=== PATIENT | male | born 1945 | race Caucasian/White ===

== ENCOUNTER → 2016-07-07 | Outpatient (CLI) | payer OTHER ==
[2015-01-25 15:30] VITALS: BP 123/62
--- NOTE | 2016-07-08 09:47 | MRI ---
HISTORY: Chronic low back pain, degenerative disc disease Study: MRI lumbar spine without contrast Comparison: None Technique: Multiplanar multi-sequence MRI of the lumbar spine was obtained. Sagittal T1, sagittal T 2, and stir weighted images, axial T1, and axial T2 images were obtained. Findings: The lumbar spine demonstrates normal alignment with the expected signal characteristics of the bone marrow. The conus of the cord terminates normally. T12 -- L1: No evidence for compressive disc disease. The neural foramina are patent. The joints are normal. L1 -- L2: No evidence for compressive disc disease. The neural foramina are patent. The joints are n ormal. L2 -- L3: No evidence for compressive disc disease. The neural foramina are patent. Mild facet arthr opathy is present. L3 -- L4: Mild broad-based disk bulging is identified. However there is also a focal rightward disc protrusion which contributes along with facet arthropathy to lateral recess and foraminal narrowing. The left neural foramen is patent. Left-sided facet arthropathy is also present. L4 -- L5: There is broad-based disc protrusion which extends somewhat more to the right than the lef t where it contributes to lateral recess and foraminal narrowing. However facet arthropathy, ligamen tous hypertrophy and a 1.65 by 0.87 centimeter synovial cyst originating from the left facet joint c ontribute to a relatively severe spinal stenosis. There is mild foraminal narrowing on the left. L5 -- S1: Broad-based disc bulging contributes along with bilateral facet arthropathy to marked late ral recess narrowing and foraminal narrowing on the left and mild narrowing on the right. IMPRESSION: As above Reported By:
== END ==
LOC: RAD 10:51
PROVIDERS: ATTEND Orthopaedic Surgery
DX: M51.36 Other intervertebral disc degeneration, lumbar region (principal)
CPT/HCPCS: 72148

== ENCOUNTER → 2016-07-23 | Day surgery (SDC) | payer OTHER ==
[~2016-07-23] MED LIST: KENALOG INJ 40 MG ONE; MARCAINE/EPINEPHRINE ONE; XYLOCAINE 2 % (PLAIN) ONE
--- NOTE | 2016-07-23 13:07 | DR.UPDATE ---
H&P Update History and Physical Update: History and Physical reviewed and patient examined. Changes noted: NO Yes with the following: Pt presents today with exam and history unchanged from office H&P. will plan for left Lumbar 4 lumbar 5 facet injection
[2016-07-23 13:39] VITALS: BP 169/95
== END | disposition home or self-care (01) | DRG 558 ==
LOC: SURG1 11:52
PROVIDERS: ATTEND Specialist
PROC: BR16ZZZ Fluoroscopy of Lumbar Facet Joint(s) (ICD-10-PCS; principal; 2016-07-23 11:45)
PROC: 3E0U3BZ Introduction of Anesthetic Agent into Joints, Percutaneous Approach (ICD-10-PCS; principal; 2016-07-23 11:45)
PROC: 3E0U33Z Introduction of Anti-inflammatory into Joints, Percutaneous Approach (ICD-10-PCS; principal; 2016-07-23 11:45)
DX: M71.38 Other bursal cyst, other site (principal); M12.88 Other specific arthropathies, not elsewhere classified, other specified site
CPT/HCPCS: 64493; S0020; J2001; J3301

== ENCOUNTER 2016-08-04 11:05 | Day surgery (SDC) | payer OTHER ==
--- NOTE | 2016-08-04 11:34 | DR.UPDATE ---
H&P Update History and Physical Update: History and Physical reviewed and patient examined. Changes noted: Yes with the following: Pt reports >50% reduction in pain with initial injection here for repeat. Otherwise unremarkable
[2016-08-04] MEDS: XYLOCAINE 2 % (PLAIN) ONE ×2 (11:36→12:17)
[2016-08-04] MEDS ORDERED: MARCAINE/EPINEPHRINE ONE (11:37)
[2016-08-04] MEDS ORDERED: KENALOG INJ 40 MG ONE (11:38)
[2016-08-04 13:38] VITALS: BP 181/89
== END 2016-08-04 12:35 | disposition home or self-care (01) ==
LOC: SURG1 11:05
PROVIDERS: ATTEND Specialist
PROC: 3E0U3BZ Introduction of Anesthetic Agent into Joints, Percutaneous Approach (ICD-10-PCS; principal; 2016-08-04 11:30)
PROC: BR16ZZZ Fluoroscopy of Lumbar Facet Joint(s) (ICD-10-PCS; principal; 2016-08-04 11:30)
PROC: 3E0U33Z Introduction of Anti-inflammatory into Joints, Percutaneous Approach (ICD-10-PCS; principal; 2016-08-04 11:30)
DX: M12.88 Other specific arthropathies, not elsewhere classified, other specified site (principal)
CPT/HCPCS: 64493; 76000; S0020; J2001; J3301

== ENCOUNTER → 2017-01-14 | Outpatient (CLI) | payer OTHER ==
--- NOTE | 2017-01-14 11:43 | MRI ---
MRI left knee without contrast Indication: Knee pain Comparison: None Technique: Multiplanar multi sequence MR images of the left knee were obtained without contrast. Findings: There is tricompartmental degenerative arthrosis of the knee with associated chondromalacia , joint space narrowing, and marginal osteophytosis. These findings are severe within the medial femo rotibial compartment, where there is high-grade chondrosis of the central weight-bearing surfaces wit h associated subchondral edema and diffuse degenerative maceration of the medial meniscus. There is m oderate to high-grade chondrosis of the lateral femorotibial compartment as well, without definite fu ll-thickness chondral defect. There is fraying of the posterior root of the lateral meniscus, without discrete tear. There is moderate diffuse patellofemoral chondrosis, with high-grade chondral fissuri ng along the inferior medial femoral trochlea with associated subchondral cystic change. No full-thic kness patellar chondral defect. There is diffuse intermediate signal of the ACL, most suggestive for mucoid degeneration, although as sociated chronic partial tear is not excluded. The PCL, mcl, major lateral stabilizers, and extensor mechanism are grossly intact. There is small joint effusion, likely reactive. No significant poplitea l cyst. There is mild nonspecific anterior knee subcutaneous edema, without discrete collection. Impression: 1. Tricompartmental degenerative arthrosis of the knee, severe in the medial femorotibial compartment , with there is high-grade chondrosis of the weight-bearing surfaces and diffuse degenerative macerat ion of the medial meniscus. 2. Moderate degenerative disease of the lateral femorotibial and patellofemoral compartments, with an area of high-grade chondral fissuring along the inferior medial femoral trochlea. 3. Fraying of the lateral meniscal posterior horn, without overt tear. 4. Mucoid ACL. Associated chronic/degenerative partial tear is not excluded. 5. Small joint effusion Reported By:
== END | disposition home or self-care (01) | DRG 556 ==
LOC: RAD 09:24
PROVIDERS: ATTEND Internal Medicine
DX: M25.562 Pain in left knee (principal); M25.462 Effusion, left knee; M17.12 Unilateral primary osteoarthritis, left knee
CPT/HCPCS: 73721

== ENCOUNTER 2017-03-04 08:06 | Emergency (ER) | payer OTHER ==
[2017-03-04 08:11] VITALS: BMI 27.8
[2017-03-04] MEDS ORDERED: ADACEL TDaP IM ONE ×2 (08:11→08:33)
[2017-03-04] MEDS ORDERED: XYLOCAINE 1 % (PLAIN) ONE (08:24)
--- NOTE | 2017-03-04 08:33 | DR.GENAD ---
HPI - PCP Primary Care Physician: VENUS - Complaint/Symptoms Chief Complaint Doctors Comments: Patient fell in the bathroom and hit his head against the door. There was no LOC. He sustaine a 4.5cm laceration. Chief Complaint:: PT C/O LACERATION TO THE BACK OF THE HEAD. PT STATES HE STARTED FEELING DIZZY AND HE FELL BACKWARDS AND AND HIT HIS HEAD ONTHE DOOR KNOB. PT DENIES LOC. - Source History Provided: Patient - Mode of Arrival Mode of Arrival: Ambulatory - Timing Onset of Chief Complaint: 03/04/17 PMH - PMH Past Medical History: Yes Past Medical History: Arthritis, Dyslipidemia, Hypertension, Kidney Stones Past Medical History Comment: PARKINSON, MYASTHANIA GRAVIS Past Surgical History: Yes Surgical History: Ortho Surgery - Family History History of Family Medical Conditions: Yes Family Medical History: Cancer, [place], Coronary Artery Disease, Hypertension - Social History Does any household member use tobacco: No Alcohol Use: Occasionally Do you use any recreational Drugs:: No Lives With: Family Lives Where: Home - infectious screening In the last 2 months have you had wt loss of >10#?: NO Have you had fever, night sweats or hemotysis?: No Have you traveled outside the country in the last 6 months?: No Isolation: Standard ROS - Review of Systems Eyes: No Symptoms Reported ENTM: No Symptoms Reported Respiratoy: No Symptoms Reported Cardiovascular: No Symptoms Reported Gastrointestinal/Abdominal: No Symptoms Reported Genitourinary: No Symptoms Reported Neurological: No Symptoms Reported Musculoskeletal: No Symptoms Reported Integumentary: Other (scalp laceration) Hematologic/Lymphatic: No Symptoms Reported Endocrine: No Symptoms Reported Psychiatric: No Symptoms Reported All Other Systems: Reviewed and Negative PE - Vital Signs Vitals: Pulse Rate 74 Respiratory Rate 18 Blood Pressure [Left Arm] 123/62 Blood Pressure 181/103 O2 Sat by Pulse Oximetry 99 - General Limitations: No Limitations General Appearance: Alert, In No Apparent Distress - Head Head Exam: Normal Inspection, Other (4.5cm laceration to the right occipital area of scalp) - Eyes Eye exam: Normal Appearance, PERRL, EOMI - ENT ENT Exam: Normal Exam, Normal Oropharynx External Ear Exam: Normal External Inspection TM/Canal Exam: Bilateral Normal Nose Exam: Normal Nose Exam, Sinus Tenderness Mouth Exam: Normal Inspection Throat Exam: Normal Inspection - Neck Neck Exam: Normal Inspection - Chest Chest Inspection: Normal Inspection - Respiratory Respiratory Exam: Normal Lung Sounds Bilat Respiratory Exam: Bilateral Clear to Auscultation - Cardiovascular Cardiovascular Exam: Regular Rate, Normal Rhythm - Abdominal Exam Abdominal Exam: Normal Inspection, Normal Bowel Sounds Abdominal Tenderness: negative: RUQ, RLQ, LUQ, LLQ, Epigastrium, Suprapubic, Diffuse, Mild, Moderate, Severe, Other - Extremities Extremities Exam: Normal Inspection, Full ROM - Back Back Exam: Normal Inspection, Full ROM - Neurologic Neurological Exam: Alert, Oriented X3, CN II-XII Intact - Psychiatric Psychiatric Exam: Normal Affect - Skin Skin Exam: Warm, Dry. negative: Intact (scalp laceration 4.5cm right occipital area) Procedures - Laceration/Wound Repair Head Wound Length (cm): 4 Wound's Depth, Shape: Superficial, Linear Wound Explored: clean Betadine Prep?: Yes Anesthesia: 2% Lidocaine (5cm) Wound Debrided: minimal Number of Sutures: 4 - Diagnosis Discharge Problem: Scalp laceration Qualifiers: Encounter type: initial encounter Qualified Code(s): S01.01XA - Laceration without foreign body of scalp, initial encounter - Discharge Plan Condition: Stable - Follow ups/Referrals Follow ups/Referrals: Dillon Robertson [Primary Care Provider] - 3 days - Instructions
[2017-03-04 08:44] VITALS: BP 168/80
== END 2017-03-04 08:48 | disposition home or self-care (01) ==
LOC: ER 08:18
PROC: 0WQ00ZZ Repair Head, Open Approach (ICD-10-PCS; principal; 2017-03-04)
DX: S01.01XA Laceration without foreign body of scalp, initial encounter (principal); Y92.9 Unspecified place or not applicable
CPT/HCPCS: 12002; 90471; 99282; J2001

== ENCOUNTER 2017-05-28 13:26 | Emergency (ER) | payer OTHER ==
[2017-05-28 13:37] VITALS: BP 137/88; BMI 27.8
--- NOTE | 2017-05-28 13:59 | DR.LACERAT ---
HPI - Time Seen Time seen: 13:45 - HPI Comment HPI Comment: PATIENT HAVE MYESTHENIA GRAVIS. HIS LEG GAVE OFF ON HIM. - Complaints Chief Complaint Doctors Comments: FELL, LACERATION LEFT FOREHEAD, HEAD TRAUMA AND LEFT KNEE RECENT HEAL SURGICAL WOUND OPEN ON SORE LINE. HAPPEN PRIOR TO COMING TO ED. Chief Complaint:: PT'S LEGS GAVE OUT AND PT FELL FOWARD NOTED PT TO HAVE A LACERATION TO LT EYEBROW AND LT KNEE. PT'S LT KNEE IS A INCISION WHERE PT JUST RECENTLY HAD A KNEE REPLACEMENT. PT JUST HAD THE JESSICA REMOVED THURSDAY. - Reviewed Nurses Notes Reviewed: Yes - Source History Provided: Patient - Mode of Arrival Mode of Arrival: Wheelchair - Timing Onset of Chief Complaint: 05/28/17 - Context Mechanism: Fall - Severity Pain Severity: Moderate Bleeding:: Controlled - Associated Signs and Symptoms Associated Signs and Symptoms: Weakness PMH - PMH Past Medical History: Yes Past Medical History: Arthritis, Dyslipidemia, Hypertension, Kidney Stones Past Medical History Comment: MYSTENIA GRAVIS Past Surgical History: Yes Surgical History: Ortho Surgery - Family History History of Family Medical Conditions: Yes Family Medical History: Cancer, [place], Coronary Artery Disease, Hypertension - Social History Does any household member use tobacco: No Alcohol Use: None Do you use any recreational Drugs:: No Lives With: Family Lives Where: Home - infectious screening In the last 2 months have you had wt loss of >10#?: NO Have you had fever, night sweats or hemotysis?: No Have you traveled outside the country in the last 6 months?: No Isolation: Standard ROS - Review of Systems Constitutional: Weakness, Fatigue. negative: Chills, Fever Eyes: negative: Eye Pain, Discharge ENTM: negative: Ear Pain, Nose Discharge, Nose Congestion, Throat Pain Respiratoy: Non-Productive Cough, Short of Breath, Wheezing. negative: Productive Cough, Hemoptysis Cardiovascular: negative: Chest Pain, Palpitations, Syncope Gastrointestinal/Abdominal: negative: Abdominal Pain, Diarrhea, Nausea, Vomiting Genitourinary: negative: Dysuria, Frequency, Hematuria Neurological: Weakness, Dizziness, Problems Walking, Other (MYASTHENIA GRAVIS) Musculoskeletal: Other (MUCLE WEAKNESS) Integumentary: No Symptoms Reported Hematologic/Lymphatic: Easy Bleeding, Easy Bruising Endocrine: No Symptoms Reported All Other Systems: Reviewed and Negative PE - Vital Signs Vitals: Temperature 98.0 F Pulse Rate 93 Respiratory Rate 18 Blood Pressure [Right Arm] 168/80 Blood Pressure [Left Arm] 123/62 Blood Pressure 137/88 O2 Sat by Pulse Oximetry 99 - General Limitations: No Limitations General Appearance: Alert - Head Head Exam: Normal Inspection - Eyes Eye exam: Normal Appearance, EOMI. negative: Scleral Icterus, Conjunctival Injection, Nystagmus - ENT ENT Exam: Normal External Ear Exam - Neck Neck Exam: Trachea Midline - Chest Chest Inspection: Symmetric Chest Wall Rise - Respiratory Respiratory Exam: Normal Lung Sounds Bilat Respiratory Exam: Bilateral Wheezing, Bilateral Rhonchi, Lower Wheezing, Lower Rhonchi - Cardiovascular Cardiovascular Exam: Regular Rate, Normal Rhythm, Normal Heart Sounds - Abdominal Exam Abdominal Exam: Normal Bowel Sounds, Soft, Tenderness - Extremities Extremities Exam: Tenderness (RIGHT KNEE), Joint Swelling (RT KNEE), Other (RT KNEE BURST OPEN ON RECENT KNEE REPLACEMENT SUTURE LINE.) - Back Back Exam: Paraspinal Tenderness - Neurologic Neurological Exam: Alert, Oriented X3. negative: Normal Gait, Motor Sensory Deficit - Psychiatric Psychiatric Exam: Normal Affect, Normal Mood - Skin Skin Exam: Erythema Type of Lesion: Laceration (LEFT FOREHEAD AND LEFT KNEE.) [facility] [place] - Additional Information Obtained Additional Information Obtained From: Family - Differential Diagnosis Differential Diagnosis: Abrasion, Contusion, Laceration, Fracture, Hematoma Course - Treatment Treatment: SEE ORDERS. - Consultation Consultation Comments: DISCUSS PATIENT WITH HOSPITALIST IN [facility]. PATIENT ACCEPTED FOR TRANSFER. - Education/Counseling Education/Counseling: Patient, Family, Education Educated On: Treatment, Diagnosis, Needs for Follow Up ROR - Labs Reviewed Laboratory Results Reviewed?: Yes Result Diagrams: 05/28/17 14:10 05/28/17 14:10 Laboratory: WBC 6.3 X10^3/uL (3.6-10.0) 05/28/17 14:10 RBC 4.31 X10^6/uL (4.7-6.0) L 05/28/17 14:10 Hgb 12.6 g/dL (13.5-18.0) L 05/28/17 14:10 Hct 37.6 % (42.0-54.0) L 05/28/17 14:10 MCV 87.4 fL (80.0-100.0) 05/28/17 14:10 MCH 29.2 pg (27.0-34.0) 05/28/17 14:10 MCHC 33.4 g/dL (33.0-35.0) 05/28/17 14:10 RDW 17.2 % (11.6-16.5) H 05/28/17 14:10 Plt Count 360 X10^3/uL (150.0-450.0) 05/28/17 14:10 MPV 7.3 fL (7.4-11.0) L 05/28/17 14:10 Neut % (Auto) 73.3 % (42.0-75.0) 05/28/17 14:10 Lymph % (Auto) 16.1 % (21.0-51.0) L 05/28/17 14:10 Traill % (Auto) 8.7 % (0.0-13.0) 05/28/17 14:10 Eos % (Auto) 1.2 % (0.9-2.9) 05/28/17 14:10 Baso % (Auto) 0.7 % (0.2-1.0) 05/28/17 14:10 Neut # (Auto) 4.6 x10^3/uL (2.2-4.8) 05/28/17 14:10 Lymph # (Auto) 1.0 X10^3/uL (1.3-2.9) L 05/28/17 14:10 Traill # (Auto) 0.5 x10^3/uL (0.3-0.8) 05/28/17 14:10 Eos # (Auto) 0.1 x10^3/uL (0.0-0.2) 05/28/17 14:10 Baso # (Auto) 0.0 X10^3/uL (0.0-0.1) 05/28/17 14:10 Absolute Nucleated RBC 0.1 /100WBC 05/28/17 14:10 Sodium 140 mmol/L (136-145) 05/28/17 14:10 Corrected Sodium 141 mmol/L (136-145) 05/28/17 14:10 Potassium 4.0 mmol/L (3.5-5.1) 05/28/17 14:10 Chloride 106 mmol/L (98-107) 05/28/17 14:10 Carbon Dioxide 26.2 mmol/L (21-32) 05/28/17 14:10 BUN 33 mg/dL (7-18) H 05/28/17 14:10 Creatinine 1.01 mg/dL (0.70-1.30) 05/28/17 14:10 Est GFR (MDRD) Af Amer > 60 (>60) 05/28/17 14:10 Est GFR (MDRD) Non-Af > 60 (>60) 05/28/17 14:10 Glucose 143 mg/dL (65-99) H 05/28/17 14:10 Calcium 8.4 mg/dL (8.5-10.1) L 05/28/17 14:10 Corrected Calcium TNP 05/28/17 14:10 Total Bilirubin 0.30 mg/dL (0.2-1.0) 05/28/17 14:10 AST 14 Units/L (15-37) L 05/28/17 14:10 ALT 11 Units/L (12-78) L 05/28/17 14:10 Alkaline Phosphatase 120 Units/L (46-116) H 05/28/17 14:10 Total Protein 6.8 g/dL (6.4-8.2) 05/28/17 14:10 Albumin 3.4 g/dL (3.4-5.0) 05/28/17 14:10 Globulin 3.4 g/dL (2.5-4.5) 05/28/17 14:10 Albumin/Globulin Ratio 1.0 Ratio (1.1-2.1) L 05/28/17 14:10 - XRAY XRAY Interpreted by: Radiologist XRAY Findings: REPORT DISCUSS WITH PATIENT AND HIS FAMILY. - EKG Rhythm: NSR - Diagnosis Discharge Problem: Laceration Scalp contusion Qualifiers: Encounter type: initial encounter Qualified Code(s): S00.03XA - Contusion of scalp, initial encounter Forehead laceration Qualifiers: Encounter type: initial encounter Qualified Code(s): S01.81XA - Laceration without foreign body of other part of head, initial encounter Laceration of knee with complication Qualifiers: Encounter type: initial encounter Laterality: unspecified laterality Qualified Code(s): S81.019A - Laceration without foreign body, unspecified knee, initial encounter Closed head injury Qualifiers: Encounter type: initial encounter Qualified Code(s): S09.90XA - Unspecified injury of head, initial encounter - Discharge Plan Disposition: 02 XFER S[facility]-TRM HOSP Condition: Stable - Follow ups/Referrals Follow ups/Referrals: Dillon Robertson [Primary Care Provider] - 3 days - Instructions Instructions: Hematoma, [id number] Additional Instructions: FOR DIRECT ADMIT WITH ORTHO DR INSTRUCTED. SUTURE OUT IN 10 DAYS
[2017-05-28] MEDS ORDERED: XYLOCAINE 1 % (PLAIN) ONE (14:32)
[2017-05-28 14:34] LABS: ALANINE AMINOTRANSFERASE 11 Units/L (12-78); ALBUMIN 3.4 g/dL (3.4-5.0); ALKALINE PHOSPHATASE 120 Units/L (46-116); ASPARTATE AMINO TRANSFERASE 14 Units/L (15-37); BLOOD UREA NITROGEN 33 mg/dL (7-18); CALCIUM 8.4 mg/dL (8.5-10.1); CARBON DIOXIDE 26.2 mmol/L (21-32); CHLORIDE 106 mmol/L (98-107); COR NA(FOR HYPERGLY) 141 mmol/L (136-145); CREATININE 1.01 mg/dL (0.70-1.30); SODIUM 140 mmol/L (136-145); TOTAL PROTEIN 6.8 g/dL (6.4-8.2); eGFR BLACK RACES > 60 (>60); eGFR NON BLACK RACES > 60 (>60)
[2017-05-28] MEDS ORDERED: STERILE WATER IRRIGATION IR ONE (14:38)
--- NOTE | 2017-05-28 14:51 | CT ---
History: Fall with left forehead laceration Study: CT head without contrast Findings: [address] imaging through the head is performed with coronal and sagittal reformatted i mages submitted as well. Ventricles are normal in size and position. Hooks-white matter appear normal. No space-occupying mass, bleed, infarct or subdural collection is identified. The bony calvarium leon ears intact. Impression: Normal CT of the head. Reported By:
[2017-05-28 14:53] LABS: BASOPHILS % (AUTO) 0.7 % (0.2-1.0); EOSINOPHILS # (AUTO) 0.1 x10^3/uL (0.0-0.2); EOSINOPHILS % (AUTO) 1.2 % (0.9-2.9); HEMATOCRIT 37.6 % (42.0-54.0); HEMOGLOBIN 12.6 g/dL (13.5-18.0); LYMPHOCYTES % (AUTO) 16.1 % (21.0-51.0); MEAN CORPUSCULAR HEMOGLOBIN 29.2 pg (27.0-34.0); MEAN CORPUSCULAR HGB CONC 33.4 g/dL (33.0-35.0); MEAN CORPUSCULAR VOLUME 87.4 fL (80.0-100.0); MEAN PLATELET VOLUME 7.3 fL (7.4-11.0); MONOCYTES # (AUTO) 0.5 x10^3/uL (0.3-0.8); MONOCYTES % (AUTO) 8.7 % (0.0-13.0); NEUTROPHILS # (AUTO) 4.6 x10^3/uL (2.2-4.8); NEUTROPHILS % (AUTO) 73.3 % (42.0-75.0); PLATELET COUNT 360 X10^3/uL (150.0-450.0); RED BLOOD COUNT 4.31 X10^6/uL (4.7-6.0); RED CELL DISTRIBUTION WIDTH 17.2 % (11.6-16.5); WHITE BLOOD COUNT 6.3 X10^3/uL (3.6-10.0)
--- NOTE | 2017-05-28 14:53 | CT ---
History: Fall with left knee trauma Study: CT left knee Findings: Thin-section helical CT imaging in the axial plane through the left knee is performed with coronal and sagittal reformatted images submitted as well. There are no recent plain films for compar ative purposes. Initial AP scanogram demonstrates bilateral total knee prostheses in place. Associate d spray artifact makes 6 evaluation of the soft tissues difficult. There appears to be some subcutane ous edema within the distal thigh above the level of the knee. There is no apparent fracture. Impression: Left total knee prosthesis in place. Mild subcutaneous edema above the level of the knee anteriorly. Reported By:
--- NOTE | 2017-05-28 14:57 | CT ---
History: Fall with head knee trauma Study: CT cervical spine without Findings: [address] imaging is performed from the level of the sella through the upper thoracic region with coronal and sagittal reformatted images submitted as well. There are moderate degenerati ve changes at the odontoid axial joint. Alignment and disc spacing appears normal with only minimal e ndplate spurring. There are moderate degenerative changes of the right apophyseal joints from the C3- 4 through C6-7 levels. No fracture, spinal stenosis is seen. Right-sided foraminal narrowing at the C 3-4 LARA C4-5 and C5-6 levels is demonstrated. Impression: Moderate osteoarthrosis of the cervical spine with right-sided foraminal narrowing and no evidence of fracture. Fall with head and knee trauma Reported By:
[2017-05-28] MEDS ORDERED: BACITRACIN ZINC ONE (15:10)
== END 2017-05-28 17:23 | disposition short-term general hospital (02) ==
LOC: ER 13:31
DX: S01.81XA Laceration without foreign body of other part of head, initial encounter (principal); S00.03XA Contusion of scalp, initial encounter; S81.019A Laceration without foreign body, unspecified knee, initial encounter; S09.8XXA Other specified injuries of head, initial encounter; Z96.651 Presence of right artificial knee joint; W19.XXXA Unspecified fall, initial encounter; Y92.9 Unspecified place or not applicable
CPT/HCPCS: 36415; 70450; 72125; 73700; 80053; 85025; 93005; 93010; 96365; 99285; A4217; A4222; J2001

== ENCOUNTER 2017-08-02 17:42 | Emergency (ER) | payer OTHER ==
[2017-08-02 17:51] VITALS: BP 145/76; BMI 25.9
[2017-08-02] MEDS ORDERED: HYDROGEN PEROXIDE 3% ONE (18:14)
[2017-08-02] MEDS ORDERED: XYLOCAINE 1 % (PLAIN) ONE (18:14)
[2017-08-02] MEDS ORDERED: NS IRRIGATION 1000 ML 1,000 ML ONE (18:15)
--- NOTE | 2017-08-02 18:44 | DR.GENAD ---
HPI - PCP Primary Care Physician: VENUS FALK - HPI Comment HPI Comment: TD UTD. - Complaint/Symptoms Chief Complaint Doctors Comments: FELL, HIT HEAD, 3CM LAC RT FOREHEAD TONIGHT. Chief Complaint:: PT C/O WALKING DOWN A STEP IN HIS HOUSE AND THAT HE LOST HIS FOOTING AND FELL AND HE HAS A 3 CM LACERATION TO HIS FORHEAD ABOUT THE RIGHT BROW. BR Self Treatment fo Chief Complaint: WASH CLOTH. - Nurses notes reviewed Nurses Notes Review: Yes - Source History Provided: Patient - Mode of Arrival Mode of Arrival: Ambulatory - Timing Onset of Chief Complaint: 08/02/17 Came on: Suddenly - Duration Duration: Constant Duration: Hours - Severity Severity: Moderate PMH - PMH Past Medical History: No Past Medical History: Arthritis, Dyslipidemia, Hypertension, Kidney Stones Past Surgical History: Yes Surgical History: Ortho Surgery - Family History History of Family Medical Conditions: Yes Family Medical History: Cancer, [place], Coronary Artery Disease, Hypertension - Social History Does patient currently use any type of tobacco product: No Have you used tobacco products in the last 12 months: No Type of Tobacco Use: None Does any household member use tobacco: No Alcohol Use: Rarely Do you use any recreational Drugs:: No Lives With: Family Lives Where: Home - infectious screening In the last 2 months have you had wt loss of >10#?: NO Have you had fever, night sweats or hemotysis?: No Have you traveled outside the country in the last 6 months?: No Isolation: Standard ROS - Review of Systems Constitutional: No Symptoms Reported Eyes: No Symptoms Reported ENTM: No Symptoms Reported Respiratoy: No Symptoms Reported Cardiovascular: No Symptoms Reported Gastrointestinal/Abdominal: No Symptoms Reported Genitourinary: No Symptoms Reported Neurological: No Symptoms Reported Musculoskeletal: Other (RT FOREHEAD, 3CM LAC.) Integumentary: Other (3CM LAC RT FOREHEAD.) Hematologic/Lymphatic: No Symptoms Reported Endocrine: No Symptoms Reported All Other Systems: Reviewed and Negative PE - Vital Signs Vitals: Temperature 96.2 F Pulse Rate 70 Respiratory Rate 20 Blood Pressure [Right Arm] 168/80 Blood Pressure [Left Arm] 123/62 Blood Pressure 145/76 O2 Sat by Pulse Oximetry 100 - General Limitations: No Limitations General Appearance: Alert - Head Head Exam: Other (3CM LAC RT FOREHEAD.) - Eyes Eye exam: Normal Appearance - ENT ENT Exam: Normal External Ear Exam External Ear Exam: Normal External Inspection TM/Canal Exam: Bilateral Normal Nose Exam: Normal Nose Exam Mouth Exam: Normal Inspection Throat Exam: Normal Inspection - Neck Neck Exam: Normal Inspection - Chest Chest Inspection: Symmetric Chest Wall Rise - Respiratory Respiratory Exam: Normal Lung Sounds Bilat Respiratory Exam: Bilateral Clear to Auscultation - Cardiovascular Cardiovascular Exam: Regular Rate, Normal Rhythm, Normal Heart Sounds - Abdominal Exam Abdominal Exam: Normal Inspection - Extremities Extremities Exam: Normal Inspection - Back Back Exam: Normal Inspection - Neurologic Neurological Exam: Alert, Oriented X3 - Psychiatric Psychiatric Exam: Normal Affect, Normal Mood - Skin Skin Exam: Erythema MDM - Additional Information Additional Information Obtained From: Family - Differential Diagnosis Differential Diagnosis: LAC RT FOREHEAD, CLOSE HEAD INJURY Course - Treatment Treatment: SEE ORDERS. - Education/Counseling Education/Counseling: Patient, Family, Education Educated On: Diagnosis, Needs for Follow Up ROR - XRAY XRAY Interpreted by: Radiologist XRAY Findings: REPORT DISCUSS WITH PATIENT. Procedures - Laceration/Wound Repair Right Face Wound Length (cm): 3 Wound's Depth, Shape: Linear Wound Explored: clean Betadine Prep?: Yes Anesthesia: 1% Lidocaine Volume Anesthetic (ccs): 2 Wound Debrided: minimal Wound Repaired With: sutures Suture Size/Type: 4:0, [place] Number of Sutures: 7 Layer Closure?: No Sterile Dressing Applied?: Yes Splint Applied?: No Sling Applied?: No - Diagnosis Discharge Problem: Forehead laceration Qualifiers: Encounter type: initial encounter Qualified Code(s): S01.81XA - Laceration without foreign body of other part of head, initial encounter - Discharge Plan Disposition: 01 HOME, SELF-CARE Condition: Stable - Follow ups/Referrals Follow ups/Referrals: NFD,None [Primary Care Provider] - 3 days - Instructions Instructions: Laceration Care, Adult, [id number], Facial Laceration, Easy-to- Read Additional Instructions: RETURN TO ED IF WORSE. SUTURE OUT IN 10 DAYS.
[2017-08-02] MEDS ORDERED: BACTROBAN OINT TOP ONE (18:49)
[2017-08-02] MEDS ORDERED: BACITRACIN ZINC ONE (19:00)
--- NOTE | 2017-08-02 19:26 | CT ---
HEAD CT WITHOUT IV CONTRAST CLINICAL INDICATION: Trauma with pain and laceration TECHNIQUE: Axial CT images from skull base to vertex without IV contrast.Dose reduction techniques in cluding Automated Exposure Control (AEC) and adjustment of mA and kV were utlized. COMPARISON: 05/28/2017 for essentially the same indication FINDINGS: There is no abnormal brain parenchymal density. There is no evidence of acute infarction, intracrani al hemorrhage, mass or mass effect, or abnormal extra-axial collection. The density of the larger dur al venous sinuses is normal. The ventricles are normal in size, shape and position. The skull base an d calvarium are normal. The included paranasal sinuses and mastoid air cells are predominantly clear. Right frontal scalp laceration IMPRESSION: 1. No acute intracranial abnormality. Reported By:
== END 2017-08-02 19:30 | disposition home or self-care (01) ==
LOC: ER 17:54
PROC: 0WQ2XZZ Repair Face, External Approach (ICD-10-PCS; principal; 2017-08-02)
DX: S01.81XA Laceration without foreign body of other part of head, initial encounter (principal); W01.198A Fall on same level from slipping, tripping and stumbling with subsequent striking against other object, initial encounter
CPT/HCPCS: 12013; 70450; 99282; 99283; J2001